=== PATIENT | female | born 1965 | race Caucasian/White ===

== ENCOUNTER 2016-12-03 15:06 | Emergency (ER) | payer SELFPAY ==
--- NOTE | 2016-12-03 15:09 | EDPHY ---
H & P HPI/ROS: HPI CHIEF COMPLAINT: Abdominal cramping HISTORY OF PRESENT ILLNESS: This patient very pleasant 51-year-old female, she presents emergency room by EMS for abdominal pain. Patient states that today she had normal food intake. She had walnuts and a protein bar. She traveled to [facility] where she had a spot treatment. Patient tells me that she left there after drinking multiple glasses of water she felt fine around 2:15 p.m. she arrived home and developed diffuse crampy abdominal pain. She had a bowel movement which was normal. She denies nausea, chest pain, shortness of breath, vomiting, fever. Denies bloody bowel movement. She states she became very concerned, she called the spa, and then called 911 arrived to the emergency room by EMS. Currently she tells me her abdominal diffuse cramping has resolved. She did not have vomiting denies fever, denies change in her normal bowel movement. She did have a normal soft stool. She did tell me she felt very anxious. She denied this pain radiating to her chest. No history of this. Denies gallstone history. She did call the Spa and was concerned that there was something in the water that she drank there. Past Medical History: Thyroid disease Past Surgical History: partial thyroidectomy Social History: Denies use of drugs alcohol tobacco products Family History: noncontributory ROS REVIEW OF SYSTEMS: A comprehensive 10 point review of systems is otherwise negative aside from elements mentioned in the history of present illness. Exam Constitutional triage nursing summary reviewed, vital signs reviewed, awake/ alert. Eyes normal conjunctivae and sclera, EOMI, PERRLA. HENT normal inspection, atraumatic, moist mucus membranes, no epistaxis, neck supple/ no meningismus, no raccoon eyes. Respiratory clear to auscultation bilaterally, normal breath sounds, no respiratory distress, no wheezing. Cardiovascular rate normal, regular rhythm, no murmur, no edema, distal pulses normal. Gastrointestinal soft, non-tender, no rebound, no guarding, normal bowel sounds, no distension, no pulsatile mass. Genitourinary no CVA tenderness. Musculoskeletal no midline vertebral tenderness, full range of motion, no calf swelling, no tenderness of extremities, no meningismus, good pulses, neurovascularly intact. Skin pink, warm, & dry, no rash, skin atraumatic. Neurologic awake, alert and oriented x 3, AAOx3, moves all 4 extremities equally, motor intact, sensory intact, CN II-XII intact, normal cerebellar, normal vision, normal speech. Psychiatric normal mood/affect. Heme/Lymph/Immune no lymphadenopathy. Differential diagnosis includes but is not limited to and in no particular order : Bowel obstruction, appendicitis, gallbladder disease, diverticulitis, colitis , enteritis, perforated viscus, gastritis, GERD, esophagitis, urinary tract infection, pyelonephritis, kidney stones Medical Decision Making: This patient had an IV established receive IV fluid bolus, she has no abdominal pain at this time is resting comfortably. She denies chest pain, shortness of breath, nausea or diarrhea. She is agreeable for basic blood work including abdominal labs including lipase, LFTs, CBC, electrolytes. Will check test will check urinalysis. Re-evaluation: EKG interpretation by me on record in [facility] system. Impression time of EKG 1528, this is sinus rhythm rate of 75, there is incomplete right bundle- branch block present. This EKG is compared to old EKG 03/09/2015. No acute ischemic changes. No signs of any arrhythmia. Same morphology as old EKG. 1609: re-examination at this time this patient's abdomen is soft nontender no guarding or peritoneal signs she p. o. challenge well. She feels fine she is agreeable for discharge planning. She does understand did a plain diet for next 24 hours no spicy fatty greasy foods. Return to the emergency room if there is any worsening symptoms includes worsening abdominal pain, fever, vomiting. I did review her blood work and it is reassuring. No evidence of acute inflammatory process. Abdomen remains benign here. She does understand return of worsening symptoms. Source: Patient, EMS - Medical/Surgical History Hx Asthma: No Hx Chronic Respiratory Disease: No Hx Diabetes: No Hx Cardiac Disease: No Hx Renal Disease: No Hx Cirrhosis: No Hx Alcoholism: No Hx HIV/AIDS: No Hx Splenectomy or Spleen Trauma: No Other PMH: thyroidectomy - Social History Smoking Status: Never smoked Constitutional: Initial Vital Signs Temperature (C) 37 C 12/03/16 15:18 Heart Rate 96 12/03/16 15:18 Respiratory Rate 18 12/03/16 15:18 Blood Pressure 109/80 12/03/16 15:18 O2 Sat (%) 96 12/03/16 15:18 O2 Delivery Mode Room Air Allergies/Adverse Reactions: No Known Allergies Allergy (Unverified 03/09/15 12:18) Home Medications: Medication Instructions Recorded ARMOUR THYROID 03/09/15 Vitamin D3 03/09/15 Synthroid 12/03/16 Medical Decision Making - Data Points Laboratory Results: Laboratory Results 12/03/16 15:15 12/03/16 15:15 12/03/16 12/03/16 15:20 15:15 WBC 7.84 10^3/uL (3.80-9.50) RBC 4.36 10^6/uL (4.18-5.33) Hgb 14.5 g/dL (12.6-16.3) Hct 40.5 % (38.0-47.0) MCV 92.9 fL (81.5-99.8) MCH 33.3 pg (27.9-34.1) MCHC 35.8 g/dL (32.4-36.7) RDW 12.3 % (11.5-15.2) Plt Count 243 10^3/uL (150-400) MPV 10.2 fL (8.7-11.7) Neut % (Auto) 67.6 % (39.3-74.2) Lymph % (Auto) 24.5 % (15.0-45.0) [place] % (Auto) 6.4 % (4.5-13.0) Eos % (Auto) 0.6 % (0.6-7.6) Baso % (Auto) 0.6 % (0.3-1.7) Nucleat RBC Rel Count 0.0 % (0.0-0.2) Absolute Neuts (auto) 5.30 10^3/uL (1.70-6.50) Absolute Lymphs (auto) 1.92 10^3/uL (1.00-3.00) Absolute Monos (auto) 0.50 10^3/uL (0.30-0.80) Absolute Eos (auto) 0.05 10^3/uL (0.03-0.40) Absolute Basos (auto) 0.05 10^3/uL (0.02-0.10) Absolute Nucleated RBC 0.00 10^3/uL (0-0.01) Immature Gran % 0.3 % (0.0-1.1) Immature Gran # 0.02 10^3/uL (0.00-0.10) Sodium 143 mEq/L (134-144) Potassium 4.0 mEq/L (3.5-5.2) Chloride 105 mEq/L (97-110) Carbon Dioxide 24 mEq/l (22-31) Anion Gap 14 mEq/L (8-16) BUN 10 mg/dL (7-23) Creatinine 0.8 mg/dL (0.6-1.0) Estimated GFR > 60 Glucose 104 H mg/dL (70-100) Calcium 9.3 mg/dL (8.5-10.4) Total Bilirubin 0.8 mg/dL (0.1-1.4) Conjugated Bilirubin 0.2 mg/dL (0.0-0.5) Unconjugated Bilirubin 0.6 mg/dL (0.0-1.1) AST 24 IU/L (14-46) ALT 31 IU/L (9-52) Alkaline Phosphatase 60 IU/L (38-126) Troponin I < 0.012 ng/mL (0-0.034) Total Protein 7.6 g/dL (6.3-8.2) Albumin 4.3 g/dL (3.5-5.0) Lipase 150.0 IU/L (23-300) Beta HCG, Qual NEGATIVE Urine Color COLORLESS Urine Appearance CLEAR Urine pH 7.0 (5.0-7.5) Ur Specific [place] 1.002 (1.002-1.030) Urine Protein NEGATIVE (NEGATIVE) Urine Ketones NEGATIVE (NEGATIVE) Urine Blood NEGATIVE (NEGATIVE) Urine Nitrate NEGATIVE (NEGATIVE) Urine Bilirubin NEGATIVE (NEGATIVE) Urine Urobilinogen NEGATIVE EU (0.2-1.0) Ur Leukocyte Esterase NEGATIVE (NEGATIVE) Ur Culture Indicated? NOT INDICATED (NI) Urine Glucose NEGATIVE (NEGATIVE) Medications Given: Discontinued Medications Sodium Chloride (Ns) 1,000 mls @ 0 mls/hr IV ONCE ONE PRN Reason: Wide Open Stop: 12/03/16 15:20 Last Admin: 12/03/16 15:45 Dose: 1,000 mls Departure - Departure Disposition: Home, Routine, Self-Care Clinical Impression: Abdominal pain Qualifiers: Abdominal location: generalized Qualifier Code: (R10.84) Generalized abdominal pain Condition: Good Instructions: Acute Abdominal Pain (ED) Additional Instructions: 1. Please return to the emergency room if he develops any worsening symptoms includes worsening abdominal pain, fever, vomiting. 2. For the next 24 hours please see very plain diet. Referrals: RAMON GEORGES [Primary Care Provider] - As per Instructions
[2016-12-03] MEDS ORDERED: NS 1,000 ML IV ONE (15:19)
[2016-12-03 15:21] VITALS: RESP 18
--- NOTE | 2016-12-03 15:30 | CPEKG ---
Heart Rate: 75 RR Interval: 800 P-R Interval: 140 QRSD Interval: 118 QT Interval: 392 QTC Interval: 438 P Cart[place]: 84 QRS Cartwright: 92 T Wave Cart[place]: 33 EKG Severity - ABNORMAL ECG - EKG Impression: SINUS RHYTHM EKG Impression: INCOMPLETE RIGHT BUNDLE BRANCH BLOCK Electronically Signed By: Kyler Eduardo 03-Dec-2016 23:30:08
[2016-12-03 15:32] LABS: % IMMATURE GRANULYOCYTES 0.3 % (0.0-1.1); ABSOLUTE IMMATURE GRANULOCYTES 0.02 10^3/uL (0.00-0.10); ADD DIFF? NO; ADD MORPH? NO; ADD SCAN? NO; ATYPICAL LYMPHOCYTE FLAG 0 (0-99); FRAGMENT RBC FLAG 0 (0-99); HEMATOCRIT 40.5 % (38.0-47.0); HEMOGLOBIN 14.5 g/dL (12.6-16.3); LEFT SHIFT FLG 0 (0-99); LIPEMIA HEMOLYSIS FLAG 90 (0-99); MEAN CELL HEMOGLOBIN 33.3 pg (27.9-34.1); MEAN CELL HEMOGLOBIN CONCENTR. 35.8 g/dL (32.4-36.7); MEAN CELL VOLUME 92.9 fL (81.5-99.8); MEAN PLATELET VOLUME 10.2 fL (8.7-11.7); PLATELET CLUMPS FLAG 0 (0-99); PLATELET COUNT 243 10^3/uL (150-400); RED BLOOD CELL COUNT 4.36 10^6/uL (4.18-5.33); RED CELL DISTRIBUTION WIDTH 12.3 % (11.5-15.2)
[2016-12-03 15:40] LABS: COLOR COLORLESS; LEUKOCYTE ESTERASE,URINE NEGATIVE (NEGATIVE); NITRITE,URINE NEGATIVE (NEGATIVE)
[2016-12-03 15:52] LABS: ALANINE AMINOTRANSFERASE 31 IU/L (9-52); ALBUMIN 4.3 g/dL (3.5-5.0); ALKALINE PHOSPHATASE 60 IU/L (38-126); ANION GAP 14 mEq/L (8-16); ASPARTATE AMINOTRANSFERASE 24 IU/L (14-46); BILIRUBIN,TOTAL 0.8 mg/dL (0.1-1.4); BILIRUBIN-CONJUGATED 0.2 mg/dL (0.0-0.5); BILIRUBIN-UNCONJUGATED 0.6 mg/dL (0.0-1.1); CALCIUM 9.3 mg/dL (8.5-10.4); CARBON DIOXIDE 24 mEq/l (22-31); CHLORIDE 105 mEq/L (97-110); CREATININE 0.8 mg/dL (0.6-1.0); GLOMERULAR FILTRATION RATE > 60; GLUCOSE 104 mg/dL (70-100); SODIUM 143 mEq/L (134-144); TOTAL PROTEIN 7.6 g/dL (6.3-8.2)
[2016-12-03 16:04] LABS: TROPONIN I < 0.012 ng/mL (0-0.034)
[2016-12-03 16:44] VITALS: BP 111/86; PULSE 84; TEMP 98.4; O2SAT 97
== END 2016-12-03 16:44 | disposition home or self-care (01) ==
LOC: EDBD → EDUNIT#
DX: R10.84 Generalized abdominal pain (principal)